=== PATIENT | female | born 1985 | race Caucasian/White ===

== ENCOUNTER 2018-10-29 12:34 | Emergency (ER) | payer OTHER ==
[~2018-10-29] VITALS: Ht 165.1 cm; Wt 75.0 kg
[2018-10-29] MEDS ORDERED: IBUPROFEN 600MG TABLET PO ONE (17:15)
[2018-10-29] MEDS ORDERED: ONDANSETRON 4MG ODT PO ONE (17:15)
[2018-10-29 17:46] VITALS: BP 123/75
== END 2018-10-29 19:38 | disposition home or self-care (01) ==
LOC: ER 12:34
DX: J11.1 Influenza due to unidentified influenza virus with other respiratory manifestations (principal)
CPT/HCPCS: 71045; 81025; 87070; 87430; 87804; 99284; Q0162